=== PATIENT | male | born 1955 | race Caucasian/White ===

== ENCOUNTER 2018-10-22 08:10 | Day surgery (SDC) | payer OTHER ==
[~2018-10-22] VITALS: Ht 175.3 cm; Wt 114.4 kg
[~2018-10-22 08:10] MED LIST: BENAZEPRIL; GLIPIZIDE; METFORMIN; PROPOFOL 200 MG INJ ONE
--- NOTE | 2018-10-22 08:12 | PREAC ---
Date/Time of Note Date/Time of Note DATE: 10/22/18 TIME: 08:11 Anesthesia Eval and Record Evaluation Time Pre-Procedure Interview DATE: 10/22/18 TIME: 08:11 Age 63 Sex male NPO: 8 hrs Preoperative diagnosis h pylori, gastritis, screening colon cancer Planned procedure egd and colonoscopy Past Medical History Past Medical History: Includes Cardio: HTN, Dyslipidemia Endo: Diabetes Pulm: Sleep Apnea, Home CPAP GI: Obesity (bmi 37) Surgery & Anesthesia Issues No known issue Meds Anticoagulation: No Beta Ena within 24 hr: No Reason Beta Ena not given: Pt. not on B-Ena Reported Medications [Metformin] No Conflict Check 08/04/18 [Glipizide] No Conflict Check 08/04/18 [Benazepril] No Conflict Check 08/04/18 Meds reviewed: Yes Allergies Coded Allergies: No Known Allergy (Unverified , 10/22/18) Allergies Reviewed: Yes Labs/Studies Labs Reviewed: Reviewed by anesthesiologist (n/a) test: N/A Studies: ECG, CXR Pre-procedure Exam Airway: Adequate mouth opening, Adequate thyromental dist Mallampati: Mallampati II (thick neck ) Teeth: Normal Lung: Normal Heart: Normal ASA Physical Status ASA physical status: 3 Emergency: None Planned Anesthetic General/MAC: MAC Planned Pain Management Parenteral pain med, Local by surgeon Pre-operative Attestations Prior to commencing anesthesia and surgery, the patient was re-evaluated, there was verification of: *The patient's identity *The results of appropriate recent lab work and preoperative vital signs *The above evaluation not changing prior to induction *Anesthetic plan, risk benefits, alternative and complications discussed with patient/family; questions answered; patient/family understands, accepts and wishes to proceed. MAGGIE DOUGLAS Oct 22, 2018 08:12
[2018-10-22 09:00] VITALS: Ht 175.3 cm; Wt 114.4 kg
[2018-10-22] MEDS ORDERED: PROPOFOL 40 ML ONE (09:20)
[2018-10-22] MEDS ORDERED: LIDOCAINE 100 MG SYRINGE ONE (09:23)
[2018-10-22 09:42] VITALS: BP 142/83; PULSE 81; RESP 22
[2018-10-22 10:41] VITALS: BP 127/76; RESP 20
--- NOTE | 2018-10-23 08:30 | PAC ---
Date/Time of Note Date/Time of Note DATE: 10/23/18 TIME: 08:29 Post-Anesthesia Notes Post-Anesthesia Note Last documented vital signs Vital Signs Date Temp Pulse Resp B/P (MAP) Pulse Ox O2 O2 Flow FiO2 Time Delivery Rate 10/22/18 98.7 80 20 127/76 93 10:41 (93) 10/22/18 98.6 81 Room Air 09:42 Activity: WNL Respiratory function: WNL Cardiovascular function: WNL Mental status: Baseline Pain reasonably controlled: Yes Hydration appropriate: Yes Nausea/Vomiting absent: No SULMA PARNELL MD Oct 23, 2018 08:30
== END 2018-10-22 10:50 | disposition home or self-care (01) ==
LOC: GIL 08:10
PROVIDERS: ATTEND Internal Medicine Gastroenterology
DX: Z12.11 Encounter for screening for malignant neoplasm of colon (principal); K29.50 Unspecified chronic gastritis without bleeding; D12.5 Benign neoplasm of sigmoid colon; K64.8 Other hemorrhoids; K57.30 Diverticulosis of large intestine without perforation or abscess without bleeding; I10 Essential (primary) hypertension; E11.9 Type 2 diabetes mellitus without complications; G47.30 Sleep apnea, unspecified
CPT/HCPCS: 43239; 45385; 82962; 88305; 88312; J2001